=== PATIENT | female | born 1995 | race Caucasian/White ===

== ENCOUNTER 2023-02-09 16:56 | Emergency (ER) | payer OTHER ==
[~2023-02-09] VITALS: Ht 152.4 cm; Wt 87.1 kg
[2023-02-09 17:04] VITALS: BP 151/61
--- NOTE | 2023-02-09 17:17 | NUR ---
PT AMBULATED TO BED 8. NICHOLAS NEWMAN AT BEDSIDE FOR EVAL
[2023-02-09] MEDS ORDERED: IBUP-1842 PO (17:44)
[2023-02-09] MEDS ORDERED: CEPH-588 PO (17:44)
--- NOTE | 2023-02-09 17:49 | NUR ---
28 YO FEMALE BIBS COMPLAINTS OF LEG PAIN. PATIENT STATES SHE FOUND A LUMP IN HER INNER RIGHT THIGH 3 DAYS AGO, THE LUMP BEGAN TO HURT YESTERDAY.
--- NOTE | 2023-02-09 17:53 | NUR ---
Patient discharged with v/s stable. Written and verbal after care instructions given and explained. Patient alert, oriented and verbalized understanding of instructions. Ambulatory with steady gait. All questions addressed prior to discharge. ID band removed. Patient advised to follow up with PMD. Rx of KEFLEX AND MOTRIN given. Patient educated on indication of medication including possible reaction and side effects. Opportunity to ask questions provided and answered.
== END 2023-02-09 17:52 | disposition home or self-care (01) ==
LOC: MED 16:56
DX: I88.9 Nonspecific lymphadenitis, unspecified (principal); Z79.899 Other long term (current) drug therapy
CPT/HCPCS: 99284

== ENCOUNTER 2023-08-04 18:47 | Emergency (ER) | payer OTHER ==
[~2023-08-04] VITALS: Ht 152.4 cm; Wt 85.7 kg
[~2023-08-04 18:47] MED LIST: CEPH-588 PO; IBUP-1842 PO
[2023-08-04 19:18] VITALS: BP 114/70; PULSE 82; RESP 18; TEMP 98.3; O2SAT 98
[2023-08-04 20:48] VITALS: BP 114/70; PULSE 82; RESP 18; TEMP 98.3; O2SAT 98
== END 2023-08-04 20:49 | disposition home or self-care (01) ==
LOC: MED 18:47
DX: R59.1 Generalized enlarged lymph nodes (principal); Z79.899 Other long term (current) drug therapy
CPT/HCPCS: 99281